=== PATIENT | male | born 1960 | race Caucasian/White ===

== ENCOUNTER 2023-07-09 17:23 | Emergency (ER) | payer OTHER, SELFPAY ==
[2023-07-09 17:28] VITALS: BP 158/10; PULSE 72; RESP 18; TEMP 37; O2SAT 99; BMI 23.7
--- NOTE | 2023-07-09 17:45 | CT_ITS ---
The [address] [address] Patient Name: EDUARDO MAYA MRN: [facility]:[id number] date: 1960 Sex: M Assigned Patient Location: ER Current Patient Location: .[facility] Accession/Order Number: [id number] Exam Date: 07/09/2023 18:00 Report Date: 07/09/2023 18:29 At the request of: AWILDA CAVAZOS Procedure: CT cervical spine wo con CT head/brain wo con, CT cervical spine wo con, 07/09/2023 6:00 PM EST INDICATION: fall COMPARISON: There is no appropriate prior study for comparison. TECHNIQUE: Axial images of 3 mm are obtained from the base of the skull to vertex completed with Axial images of 2 mm are obtained from base of skull to T2 without contrast. Dose reduction techniques were achieved by using automated exposure control and/or adjustment of mA and/or kV according to patient size and/or use of iterative reconstruction technique. FINDINGS: The cerebral and cerebellar sulci as well as ventricular system are appropriate for age. There is no intracranial mass, mass effect, midline shift, intra or extra-axial fluid collection. No acute territorial infarction or hemorrhage is noted. Periventricular and centrum semiovale hypodensities are most likely consistent with microvascular ischemic changes. Mild mucosal thickening within the ethmoidal cells and left frontal and sphenoidal sinuses is noted. The visualized portions of orbits, mastoid air cells as well as remainder of paranasal sinuses are unremarkable. There is no suspicious osteolytic or osteoblastic lesion. Left frontal subgaleal hemorrhage and swelling is noted measuring 1.8 cm. No acute fracture or dislocation is noted. Multilevel degenerative changes of cervical spine are noted. Bilateral centrilobular and paraseptal emphysematous changes are noted. CT/CT cervical spine wo con IMPRESSION: No acute intracranial process is identified. No acute fracture. Left frontal subgaleal hemorrhage hemorrhages/swelling. Electronically authenticated by: CHAPIN RAMIREZ Date: 07/09/2023 18:29
--- NOTE | 2023-07-09 17:45 | CT_ITS ---
The [address] [address] Patient Name: EDUARDO MAYA MRN: [facility]:[id number] date: 1960 Sex: M Assigned Patient Location: ER Current Patient Location: .[facility] Accession/Order Number: [id number] Exam Date: 07/09/2023 18:00 Report Date: 07/09/2023 18:29 At the request of: AWILDA CAVAZOS Procedure: CT head/brain wo con CT head/brain wo con, CT cervical spine wo con, 07/09/2023 6:00 PM EST INDICATION: fall COMPARISON: There is no appropriate prior study for comparison. TECHNIQUE: Axial images of 3 mm are obtained from the base of the skull to vertex completed with Axial images of 2 mm are obtained from base of skull to T2 without contrast. Dose reduction techniques were achieved by using automated exposure control and/or adjustment of mA and/or kV according to patient size and/or use of iterative reconstruction technique. FINDINGS: The cerebral and cerebellar sulci as well as ventricular system are appropriate for age. There is no intracranial mass, mass effect, midline shift, intra or extra-axial fluid collection. No acute territorial infarction or hemorrhage is noted. Periventricular and centrum semiovale hypodensities are most likely consistent with microvascular ischemic changes. Mild mucosal thickening within the ethmoidal cells and left frontal and sphenoidal sinuses is noted. The visualized portions of orbits, mastoid air cells as well as remainder of paranasal sinuses are unremarkable. There is no suspicious osteolytic or osteoblastic lesion. Left frontal subgaleal hemorrhage and swelling is noted measuring 1.8 cm. No acute fracture or dislocation is noted. Multilevel degenerative changes of cervical spine are noted. Bilateral centrilobular and paraseptal emphysematous changes are noted. CT/CT head/brain wo con IMPRESSION: No acute intracranial process is identified. No acute fracture. Left frontal subgaleal hemorrhage hemorrhages/swelling. Electronically authenticated by: CHAPIN RAMIREZ Date: 07/09/2023 18:29
--- NOTE | 2023-07-09 18:08 | PC.NURSE ---
Patient has bandage on area to left side of head, patient refuses to let nurse cleanse area and states it's already cleaned .
--- NOTE | 2023-07-09 18:10 | SUR.HOLD ---
Patient up in room, refuses nurse to allow nurse to cleanse wound on head. Patient arguing with radiology about getting CT, does agree and this nurse accompanies patient to CT. Back in room with spouse at this time.
--- NOTE | 2023-07-09 18:57 | ED_ITS ---
HPI - General Adult General Chief complaint: Head Injury Stated complaint: head injury d/t fall Time Seen by Provider: 07/09/23 17:45 Source: patient and family Mode of arrival: walk-in Limitations: altered mental status History of Present Illness HPI narrative: 62-year-old male with a history of alcoholism is brought to the emergency room coming by significant other with a chief complaint of a fall in a parking lot. Patient has been drinking today. Patient was brought here for evaluation he has a significant abrasion on his cheek and on his left parietal scalp area. Unknown loss conscious. Patient is intoxicated at this time. He also has a laceration posterior left ear which is 3 cm in length. Patient was made come to emergency room for evaluation he does not want anything done when he 1st arrives.He is alert and oriented to place and self. He is under the influence of alcohol. Related Data Allergies Allergy/AdvReac Type Severity Reaction Status Date / Time No Known Drug Allergies Allergy Verified 07/09/23 17:35 Review of Systems ROS Narrative All Systems are negative except as noted/marked.All systems reviewed and otherwise negative [facility] Social History Smoking status: Current every day smoker Exam Narrative Exam Narrative: Nurses note and vital signs reviewed and patient is not hypoxic. General: The patient appears Intoxicated but alert Skin: Warm, dry, no pallor noted. There is no rash noted. Head: Normocephalic, atraumatic Eye: Normal conjunctiva, no drainage, EOMI. PERRL Ears, Nose, Mouth, and Throat: 3 cm laceration to the left posterior ear at the base, cartilage involved, oral mucosa is moist. Nares patent. Mouth without vesicles. Ear canals patent. Tm's without Erythema Cardiovascular: Regular Rate and Rhythm Respiratory: Patient is in no distress, no accessory muscle use, lungs are clear to auscultation, no wheezing, rales or rhonchi Back: non-tender, no CVA tenderness bilaterally to percussion. GI: Normal bowel sounds, no tenderness to palpation, no masses appreciated. No rebound, guarding, or rigidity noted. Musculoskeletal: The patient has no evidence of calf tenderness, no pitting edema, symmetrical pulses noted bilaterally Neurological: A&O x4, normal speech Psychiatric: Cooperative Constitutional Vital Signs, click to edit/add: Last Vital Signs Temp 98.6 F 07/09/23 17:28 Pulse 72 07/09/23 17:28 Resp 18 07/09/23 17:28 BP 158/10 H 07/09/23 17:28 Pulse Ox 99 07/09/23 17:28 O2 Del Method Room Air 07/09/23 17:28 Course Vital Signs Vital signs: Vital Signs Temperature 98.6 F 07/09/23 17:28 Pulse Rate 72 07/09/23 17:28 Respiratory Rate 18 07/09/23 17:28 Blood Pressure 158/10 H 07/09/23 17:28 Pulse Oximetry 99 07/09/23 17:28 Oxygen Delivery Method Room Air 07/09/23 17:28 Temperature 98.6 F 07/09/23 17:28 Pulse Rate 72 07/09/23 17:28 Respiratory Rate 18 07/09/23 17:28 Blood Pressure 158/10 H 07/09/23 17:28 Pulse Oximetry 99 07/09/23 17:28 Oxygen Delivery Method Room Air 07/09/23 17:28 Medical Decision Making MDM Narrative Medical decision making narrative: Patient is brought to emergency room with significant other after patient had fallen at a local bar outside in a parking lot. He is under the influence of alcohol at this time. Patient had a head and neck CT scan performed here in the emergency room. Both head and neck CT Read negative by radiology. Patient refuses update of tetanus. He refuses antibiotics. Patient has significant laceration posterior aspect of the left ear. Left ear was no sense one percent lidocaine solution locally ?3 mL, area was cleaned with Hibiclens normal saline prepped and draped sterile fashion, seven simple sutures with 6-0 Ethilon were used to reapproximate posterior flap of the ear good approximation is noted. No active bleeding. Nonadhesive dressing applied by nursing staff. Patient is being discharged to home with diagnosis of head injury, alcohol abuse, laceration of the ear. Instructions to care for the ear and laceration were given to significant other. Patient refuses to follow-up with physician and states he has no doctor he is going to pull the stitches out himself. Patient encouraged to follow-up with plastic surgery or a primary care physician. He refuses antibiotics. Differential Diagnosis Differential Diagnosis: Head injury, EtOH abuse, laceration, facial abrasion, fall Medical Records Medical records reviewed: Yes I reviewed the patient's medical records Lab Data Lab results reviewed: Yes I reviewed the patient's lab results Imaging Data CT scan - head: Radiologist's impression: INDICATION: fall COMPARISON: There is no appropriate prior study for comparison. TECHNIQUE: Axial images of 3 mm are obtained from the base of the skull to vertex completed with Axial images of 2 mm are obtained from base of skull to T2 without contrast. Dose reduction techniques were achieved by using automated exposure control and/or adjustment of mA and/or kV according to patient size and/or use of iterative reconstruction technique. FINDINGS: The cerebral and cerebellar sulci as well as ventricular system are appropriate for age. There is no intracranial mass, mass effect, midline shift, intra or extra-axial fluid collection. No acute territorial infarction or hemorrhage is noted. Periventricular and centrum semiovale hypodensities are most likely consistent with microvascular ischemic changes. Mild mucosal thickening within the ethmoidal cells and left frontal and sphenoidal sinuses is noted. The visualized portions of orbits, mastoid air cells as well as remainder of paranasal sinuses are unremarkable. There is no suspicious osteolytic or osteoblastic lesion. Left frontal subgaleal hemorrhage and swelling is noted measuring 1.8 cm. No acute fracture or dislocation is noted. Multilevel degenerative changes of cervical spine are noted. Bilateral centrilobular and paraseptal emphysematous changes are noted. IMPRESSION: No acute intracranial process is identified. No acute fracture. Left frontal subgaleal hemorrhage hemorrhages/swelling. Electronically authenticated by: CHAPIN RAMIREZ Date: 07/09/2023 18:29 Discharge Plan Discharge Chief Complaint: Head Injury Clinical Impression: Closed head injury, H/O ETOH abuse, Laceration of ear Patient Disposition: Home, Self-Care Time of Disposition Decision: 19:30 Condition: Good Instructions: Laceration (DC), Head Injury (DC), Alcohol Intoxication (ED), Facial Laceration (ED) Additional Instructions: follow up with primary care doc or Dr Callaway in [place] Stand Alone Forms: Portal Instructions Referrals: Physician,Non-Staff, MD [Primary Care Provider] - 1 week
--- NOTE | 2023-07-09 19:03 | PC.NURSE ---
Patient allows this nurse to cleanse wound to forehead and to laceration behind left ear, areas cleansed with Mar[employer]
== END 2023-07-09 19:53 | disposition home or self-care (01) ==
PROVIDERS: Emergency Provider Emergency Medicine
DX: S01.312A Laceration without foreign body of left ear, initial encounter (principal); S09.8XXA Other specified injuries of head, initial encounter; F10.129 Alcohol abuse with intoxication, unspecified; W19.XXXA Unspecified fall, initial encounter; F17.210 Nicotine dependence, cigarettes, uncomplicated
CPT/HCPCS: 12013; 70450; 72125; 99285